=== PATIENT | female | born 1950 | race Caucasian/White ===

== ENCOUNTER 2019-12-23 07:54 | Emergency (ER) | payer OTHER, MEDICARE, BC ==
[~2019-12-23] VITALS: Ht 165.1 cm; Wt 59.0 kg
[2019-12-23 08:00] VITALS: BP 136/92
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
[2019-12-23 08:18] VITALS: BP 136/92
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
--- NOTE | 2019-12-23 09:15 | NUR ---
VERBAL ORDER RECEIVED VERBAL ORDER FROM DR. OROZCO FOR 60 MG TORADOL IM, STAT
[2019-12-23] MEDS ORDERED: TORADOL ONE (09:16)
[2019-12-23] MEDS ORDERED: TORADOL IM ONE (09:17)
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
[2019-12-23 10:57] VITALS: BP 138/74
--- NOTE | 2019-12-23 11:19 | NUR ---
MANISH PEACOCKA ON PHONE WITH DR HAMMOND AT THIS TIME REGARDING PT.
--- NOTE | 2019-12-23 11:19 | NUR ---
UPDATE DR OROZCO ON TELEPHONE WITH DR HAMMOND.
--- NOTE | 2019-12-23 11:35 | NUR ---
SLING PATIENT PLACED IN SLING TO LEFT ARM PER VERBAL ORDER BY DR. OROZCO. PATIENT TOLERATED WELL. PATIENT EXPRESSED GREATER COMFORT WITH SLING IN POSITION TO SUPPORT ARM.
== END 2019-12-23 11:49 | disposition home or self-care (01) ==
LOC: ER 07:54
DX: S42.022A Displaced fracture of shaft of left clavicle, initial encounter for closed fracture (principal); S42.122A Displaced fracture of acromial process, left shoulder, initial encounter for closed fracture; E07.9 Disorder of thyroid, unspecified; I10 Essential (primary) hypertension; Z79.1 Long term (current) use of non-steroidal anti-inflammatories (NSAID); Z88.1 Allergy status to other antibiotic agents; V49.9XXA Car occupant (driver) (passenger) injured in unspecified traffic accident, initial encounter; Y93.89 Activity, other specified; Y92.89 Other specified places as the place of occurrence of the external cause; Y99.8 Other external cause status
CPT/HCPCS: 73030; 73200; 96372; 99285; J1885